=== PATIENT | female | born 1945 | race Two or more races ===

== ENCOUNTER 2021-09-22 05:37 | Day surgery (SDC) | payer OTHER | END 2021-09-22 12:15 | disposition home or self-care (01) | LOC: AMB-ENDOS 05:37 → CIR.AMB 14:15 | PROVIDERS: ATTEND Surgery | DX: D12.0 Benign neoplasm of cecum (principal); K57.30 Diverticulosis of large intestine without perforation or abscess without bleeding; E03.9 Hypothyroidism, unspecified; Z20.822 Contact with and (suspected) exposure to COVID-19 ==

== ENCOUNTER 2022-04-10 11:30 | Inpatient (IN) | payer OTHER ==
[~2022-04-10] VITALS: Ht 157.5 cm; Wt 69.4 kg
[2022-04-10] MEDS ORDERED: LEVOTHYROXINE25 MCG PO (14:30)
[2022-04-10] MEDS ORDERED: FOSAMAX70 MG PO (14:42)
[2022-04-14] MEDS ORDERED: MELOXICAM15 MG (10:45)
[2022-04-14] MEDS ORDERED: TIZANIDINE HCL4 MG (10:45)
[2022-04-14] MEDS ORDERED: PREDNISOLONE ACE5 ML (10:45)
[2022-04-14] MEDS ORDERED: TOPIRAMATE50 MG (10:45)
[2022-04-16] MEDS ORDERED: INTESTINEX680 M1 PO (09:21)
[2022-04-16] MEDS ORDERED: TRAM1TAB98 PO (09:21)
[2022-04-16] MEDS ORDERED: PEPCID AC20 MG PO (09:21)
== END 2022-04-16 13:15 | disposition home or self-care (01) | DRG 331 ==
LOC: SURH 04-13 05:15 → O/R 04-13 05:15 → SURH 04-13 11:30
PROVIDERS: ADMIT Surgery; ATTEND Surgery
PROC: 0DTF4ZZ Resection of Right Large Intestine, Percutaneous Endoscopic Approach (ICD-10-PCS; principal; 2022-04-13 09:00)
DX: D12.2 Benign neoplasm of ascending colon (principal); Z20.822 Contact with and (suspected) exposure to COVID-19